=== PATIENT | male | born 1970 | race Caucasian/White ===

== ENCOUNTER 2023-12-24 06:16 | Day surgery (SDC) | payer OTHER ==
[2023-12-19 10:52] VITALS: BP 131/76; PULSE 77; RESP 15
[2023-12-19 10:53] LABS: BASOPHILS # (AUTO) 0.06 K/uL (0.00-0.20); BASOPHILS % (AUTO) 0.5 % (0.0-5.0); EOSINOPHILS # (AUTO) 0.88 K/uL (0.00-0.70); EOSINOPHILS % (AUTO) 7.3 % (0.0-8.0); HEMATOCRIT 44.4 % (42-54); IMMATURE GRANULOCYTE ABSOLUTE 0.05 K/uL (0-1); LYMPHOCYTES # (AUTO) 2.2 K/uL (1.0-4.8); MEAN CORPUSCULAR HEMOGLOBIN 28.3 pg (27.0-33.0); MEAN CORPUSCULAR HGB CONC 33.1 g/dL (32.0-36.0); MEAN CORPUSCULAR VOLUME 85.5 fL (79-99); MONOCYTES % (AUTO) 8.6 % (3.0-13.0); NEUTROPHILS # (AUTO) 7.8 K/uL (1.8-7.7); NEUTROPHILS % (AUTO) 65.2 % (40.0-77.0); PLATELET COUNT (AUTO) 343 K/uL (130-400); RED BLOOD CELL COUNT(AUTO) 5.19 MIL/uL (4.50-6.20); RED CELL DISTRIBUTION WIDTH 15.3 % (11.0-15.5)
[2023-12-19 11:00] LABS: POTASSIUM 4.4 mmol/L (3.5-5.1)
[2023-12-19 11:03] LABS: INR 0.95 (0.85-1.15); PROTHROMBIN TIME 11.1 SEC (9.6-11.6)
[2023-12-19 11:04] LABS: PARTIAL THROMBOPLASTIN TIME 29.8 SEC (26.3-35.5)
[~2023-12-24] VITALS: Ht 172.7 cm; Wt 70.1 kg
[2023-12-24] VITALS (15 sets, daily range): BP systolic 114–133; BP diastolic 68–83; PULSE 59–85; RESP 9–16
[~2023-12-24 06:16] MED LIST: [UNRECOGNIZED DRUG - CODE] IV
[2023-12-24] MEDS: CEFAZOLIN SODIUM 2 GM VIAL ONE (06:46)
[2023-12-24] MEDS: LACTATED RINGERS 1000ML 1,000 ML IV ONE (06:46)
[2023-12-24] MEDS ORDERED: GLYCOPYRROLATE 0.2 MG/ML 5 ML VIAL ONE (06:55)
[2023-12-24] MEDS ORDERED: SUCCINYLCHOLINE CHLORIDE 20 MG/ML 10 ML VIAL ONE (06:55)
[2023-12-24] MEDS ORDERED: DEXAMETHASONE SOD PHOSPHATE 10MG/ML 1ML VIAL ONE (06:55)
[2023-12-24] MEDS ORDERED: LIDOCAINE PF 100MG/5ML (2%) SYRINGE 5ML ONE (06:55)
[2023-12-24] MEDS ORDERED: ONDANSETRON 4MG INJ ONE (06:55)
[2023-12-24] MEDS ORDERED: MIDAZOLAM HCL 1 MG/ML 2ML VIAL ONE (06:56)
[2023-12-24] MEDS ORDERED: FENTANYL CITRATE PF 50 MCG/1 ML 2ML VIAL ONE (06:56)
[2023-12-24] MEDS ORDERED: ROCURONIUM BROMIDE 10MG/1ML 5ML VL ONE (06:56)
[2023-12-24] MEDS ORDERED: PROPOFOL 10 MG/ML 20ML VIAL IV ONE (06:56)
[2023-12-24] MEDS ORDERED: NEOSTIGMINE METHYLSULFATE 1MG/ML IV ONE (06:56)
[2023-12-24] MEDS ORDERED: BUPIVACAINE/PF 0.25% 30ML VIAL IJ ONE (07:16)
[2023-12-24] MEDS: CEFAZOLIN SODIUM 2 GM VIAL IVPB ONE (07:41)
[2023-12-24] MEDS: BUPIVACAINE/EPI/PF 0.25% 30ML VIAL IJ ONE (08:03)
[2023-12-24] MEDS ORDERED: METH-662 PO (08:31)
== END 2023-12-24 10:15 | disposition home or self-care (01) ==
LOC: DAH 06:16
PROVIDERS: ATTEND Surgery
DX: R59.0 Localized enlarged lymph nodes (principal); C43.72 Malignant melanoma of left lower limb, including hip; C77.4 Secondary and unspecified malignant neoplasm of inguinal and lower limb lymph nodes; F17.200 Nicotine dependence, unspecified, uncomplicated; Z86.010 Personal history of colon polyps; Z79.01 Long term (current) use of anticoagulants; Z79.899 Other long term (current) drug therapy; Z98.890 Other specified postprocedural states
CPT/HCPCS: 80048; 85025; 85610; 85730; 36415; 38531; 88309; 88342; 88341; A4663; A4606; J7120; J3010; J1100; J0330; J0665; J3490 ×3; J2001; J2250; J2704; J2405; J2710; J0690 ×2; A4649; A4215; A4223; A4222; A4221; A4600; G0168